=== PATIENT | male | born 1965 | race African-American/Black ===

== ENCOUNTER 2021-12-01 15:58 | Emergency (ER) | payer OTHER, SELFPAY ==
--- NOTE | ~2021-12-01 | CT_ITS ---
EXAMINATION: CT ABDOMEN AND PELVIS WITHOUT CONTRAST CLINICAL INFORMATION: Right flank pain and hip pain after fall x2 days. COMPARISON: None TECHNIQUE: Multidetector volumetric imaging was performed from the superior aspect of the liver through the pubic symphysis. Sagittal and coronal reformatted images were obtained on the technologist's workstation. This CT examination was performed using dose optimization techniques as appropriate, variously including the following: *Automated exposure control *Adjustment of mA and/or kV according to patient size (this includes techniques or standardized protocols for targeted exams where dose is matched to indication/reason for exam; i.e. extremities or head) *Use of iterative reconstruction technique DLP: 781 mGy-cm FINDINGS: LUNG BASES: The visualized lung bases are unremarkable. LIVER, GALLBLADDER, AND BILIARY TREE: The liver is normal in size, shape, and attenuation. No focal hepatic lesion or biliary ductal dilatation is present. The gallbladder is unremarkable with no evidence of radiopaque gallstones, gallbladder wall thickening, or obvious pericholecystic inflammatory changes. PANCREAS: Unremarkable. SPLEEN: Unremarkable. ADRENAL GLANDS: Unremarkable. KIDNEYS AND URETERS: The kidneys are normal in size, shape, and attenuation. No hydronephrosis, hydroureter, or calculi seen. No perinephric stranding. BLADDER: The bladder isn't distended with a diffuse bladder wall thickening. No radiopaque calculi seen. GASTROINTESTINAL TRACT: Scattered stool and gas is seen throughout the colon without any distention. The appendix is normal. The small bowel loops are normal. No free air or free fluid seen. ABDOMINAL WALL: No significant hernia is appreciated. LYMPH NODES: Normal. VASCULAR: Unremarkable. PELVIC VISCERA: Moderate stool is seen in the sigmoid colon. The prostate gland is moderately enlarged. OSSEOUS STRUCTURES: No lytic or sclerotic process seen. Moderate ventral spondylosis seen in lower dorsal spine. CT/CT abdomen pelvis wo con IMPRESSION: No acute intra-abdominal process seen. The appendix is normal caliber. There is moderate constipation. No radiopaque urolith or hydroureteronephrosis. Fleischner guidelines were followed.
[2021-12-01 17:04] VITALS: BP 130/86; PULSE 97; RESP 16; TEMP 36.6; O2SAT 96; BMI 32.8
--- NOTE | 2021-12-01 17:55 | ED_ITS ---
HPI - Fall General Chief Complaint: Fall Stated Complaint: fall at work Time Seen by Provider: 12/01/21 17:23 Source: patient Mode of arrival: ambulatory Limitations: no limitations History of Present Illness HPI Narrative: 56-year-old male presenting to the ED with complaints of right flank/lower back/right hip/leg pain after he had a mechanical fall at work 2 days ago. He reports that there was plastic on the floor and he did not see the plastic and his right leg slipped on the plastic and flew up into the air and he fell onto his left side and since then he has been having pain to his right side. He juvenal es head injury loss of consciousness or prolonged down sign or being on any blood thinners. He denies any symptoms prior to the fall. He denies any headaches, dizziness, neck pain/injury, head injury, upper back injury, any other extremity injury, any paresthesias, focal weakness or general weakness, dysuria, hematuria, urinary bowel incontinence or retention, radiation of the flank pain/back pain or any other symptoms complaints concerns or injuries at this time. MD complaint: fall Onset (ago): day(s) (2 days ago) Fall from: standing Fall witnessed: no Place fall occurred: work Loss of consciousness: none Prolonged down time: no Symptoms prior to fall: none Context: tripped/slipped Location of injury: back, abdomen and pelvis Severity: mild Quality: aching Associated symptoms (after fall): other (right flank/back/hip pain ) Related Data Allergies Allergy/AdvReac Type Severity Reaction Status Date / Time No Known Allergies Allergy Verified 12/01/21 17:07 Review of Systems Review of Systems: Constitutional : No Weight loss, No Fever, No Chills, No Night Sweats, No Fatigue, No Malaise ENT/Mouth : No Hearing loss, No Ear Pain, No Nasal Congestion, No Sinus Pain, No Hoarseness, No sore throat, No Rhinorrhea, No Swallowing Difficulty Eyes: No Eye Pain, No Swelling, No Redness, No Foreign Body, No Discharge, No Vision Changes Cardiovascular : No Chest Pain, No SOB, No Dyspnea on Exertion, No Orthopnea, No Edema, No Palpitations Respiratory : No Cough, No Sputum, No Wheezing, No Smoke Exposure, No Dyspnea Gastrointestinal : No Nausea, No Vomiting, No Diarrhea, No Constipation, No abdominal Pain, No Hematochezia, No Melena Genitourinary : + right flank pain, no irregular bleeding, No Dysuria, No Urinary Frequency, No Hematuria, No Urinary Incontinence, No Urgency, No Flank Pain, No Urinary Flow Changes, No Hesitancy Musculoskeletal : + right hip pain, + lower back pain, No additional joint pain, No Myalgias, No Joint Swelling Skin : No Skin Lesions, No rash Neuro : No Weakness, No Numbness, No Paresthesias, No Loss of Consciousness, No Dizziness, No Headache Psych : No Anxiety/Panic, No Depression, No SI/HI/AH/VH, No Social Issues, Heme/Lymph: No Bruising, No Bleeding,No Lymphadenopathy Endocrine : No Polyuria, No Polydipsia, No Temperature Intolerance Yes all other systems are reviewed and are negative [facility] Past Medical History Attestation statement: The following information was validated with the patient. Source: old records reviewed and nursing notes reviewed Social History Social History Advance Directives: No Advance Directives Information Provided: No Physical Exam Vital Signs: Vital Signs: Last Vital Signs Temp 97.8 F 12/01/21 17:04 Pulse 97 12/01/21 17:04 Resp 16 12/01/21 17:04 BP 130/86 12/01/21 17:04 Pulse Ox 96 12/01/21 17:04 O2 Del Method 12/01/21 17:04 BMI result Body Mass Index 32.8 vital signs have been reviewed as normal and appeared to be correct. Blood pressure normal. Heart rate normal. Respiration rate normal. Temperature normal. Oxygen saturation normal. Appearance: Alert. Oriented X3. No acute distress. Head: Normal external exam. Normocephalic. Atraumatic. No Palencia signs noted. No raccoon eyes noted Eyes: PERRLA. EOMI. Conjunctiva and sclera normal. Eyelids normal. ENT: EAC normal. TM's Normal. No septal hematoma noted. No hemotympanum noted. Pharynx normal. Uvula midline. Moist mucous membranes. No lesions/ulcerations or masses noted on the tongue. Normal voice. No trismus noted. No drooling noted. No muffled voice noted. Neck: Normal inspection. Neck supple. FROM. No adenopathy. Thyroid Normal. No tracheal deviation noted. No crepitus is noted. No meningeal signs. No neck mass noted. No signs of trauma noted. CVS: Normal heart rate and rhythm. Heart sound normal. Pulses normal throughout. No murmurs/rales/gallops. Respiratory: No respiratory distress. Painless inspiration. Breath sounds normal. No wheezes/rales/rhonchi noted. Chest nontender. No crepitus is noted. No signs of trauma noted. No accessory muscle usage noted or decreased air movement noted. No signs of trauma. Abdomen: Soft and nontender. Bowel sounds normal in all 4 quadrants. No distention noted. No organomegaly noted. No visible injury noted. Back: No CVA tenderness. Full range of motion noted. Patient with tenderness palpation to bilateral lumbar para spinous musculature. No mid lumbar tenderness step-offs or deformities noted. No signs of trauma. Patient neuro intact bilaterally and distally on all 4 extremities. Patient's reflexes intact bilaterally and distally on all 4 extremities. No rashes/lesion/induration/fluctuance or signs of infection noted. Skin: Skin warm and dry. Normal skin color. Normal skin turgor. No rashes/lesions/lacerations noted. Extremities: Patient mild tenderness palpation to the right hip although has full range of motion of the right hip no obvious ligamentous or tendon injury noted or obvious deformity noted. Otherwise all other extremities exhibit normal range of motion nontender. No lower extremity edema. No calf tenderness is noted. Neuro: Oriented X 3. No motor deficit. No sensory deficit. Reflexes normal. Normal steady gait. No focal neuro deficits noted. CN's II-XII intact bilaterally? Vascular: + radial pulses/+ 2 distal pedal pulses/+2 dorsalis pedis b/l. Normal cap refill. No cyanosis noted to upper extremity nails and lower extremity toes nails. Course Course Course Narrative: 17:30pm - 56-year-old male presenting to the ED with complaints of right flank/lower back/right hip/leg pain after he had a mechanical fall at work 2 days ago. He reports that there was plastic on the floor and he did not see the plastic and his right leg slipped on the plastic and flew up into the air and he fell onto his left side and since then he has been having pain to his right side. Will obtain a CT scan of abdomen pelvis without IV contrast to evaluate the patient's kidney/right hip and lumbar spine. Will also obtain a UA and re-evaluate. MDM - Fall Medical Records Attestation: I reviewed the patient's medical records. Discharge Plan Discharge Clinical Impression: Fall, Work related injury, Back strain Patient Disposition: Still a Patient
[2021-12-01 20:41] LABS: Appearance Urine CLEAR; Color Urine YELLOW; Glucose Urine UA NEG (NEG); Leukocyte Esterase Urine NEG (NEG); Nitrite Urine NEG (NEG); Specific Gravity - Urine 1.025 (1.005-1.025); Urine Blood NEG (NEG); Urine Ketones NEG (NEG); Urine Protein NEG (NEG-TRACE)
== END 2021-12-01 20:47 | disposition home or self-care (01) ==
PROVIDERS: Physician Assistant Medical; Emergency Provider Emergency Medicine
DX: S39.012A Strain of muscle, fascia and tendon of lower back, initial encounter (principal); W01.0XXA Fall on same level from slipping, tripping and stumbling without subsequent striking against object, initial encounter; Y93.89 Activity, other specified; Y92.59 Other trade areas as the place of occurrence of the external cause; Y99.0 Civilian activity done for income or pay
CPT/HCPCS: 74176; 81003; 99284

== ENCOUNTER 2022-01-19 16:11 | Emergency (ER) | payer SELFPAY ==
--- NOTE | ~2022-01-19 | XR_ITS ---
EXAMINATION: XR FOOT, LEFT CLINICAL INFORMATION: Left great toe pain COMPARISON: None TECHNIQUE: AP, lateral, and oblique views of the left foot. FINDINGS: No acute fracture or dislocation. Moderate first MTP joint osteoarthritis with joint space narrowing, subchondral sclerosis and osteophyte formation. Joint spaces otherwise maintained. Lisfranc alignment is maintained. No erosions are seen. Mild soft tissue swelling overlying the medial aspect of the first MTP joint. Posterior and plantar calcaneal spurs. No ankle joint effusion. XR/XR foot LT 2V IMPRESSION: 1. No acute osseous injury. 2. Moderate first MTP joint osteoarthritis.
[2022-01-19 17:38] VITALS: BP 116/75; PULSE 93; RESP 18; TEMP 36.4; O2SAT 97; BMI 32.8
[2022-01-19 21:51] VITALS: BP 142/93; PULSE 72; RESP 14; TEMP 36.7; O2SAT 97
--- NOTE | 2022-01-19 22:00 | ED.GENADULT ---
HPI - General Adult General Chief complaint: Extremity Problem Stated complaint: Toe pain Time Seen by Provider: 01/19/22 22:00 Source: patient Limitations: no limitations History of Present Illness HPI narrative: This is a 56-year-old male with a history of gout in his right big toe, who complains of similar symptoms in his left big toe for about 3 days. The patient has noted pain around the proximal joint (metatarsophalangeal joint), with tenderness and redness. He denies any fever. He drinks beer occasionally, denies regular alcohol use. He has history of hypertension Related Data Previous Rx's Medication Instructions Recorded colchicine 0.6 mg capsule 0.6 mg PO DAILY #1 cap 01/19/22 prednisone 10 mg tablet 40 mg PO DAILY #20 tabs 01/19/22 tramadol 50 mg tablet (Ultram) 50 - 100 mg PO Q6H PRN pain #20 01/19/22 tabs Allergies Allergy/AdvReac Type Severity Reaction Status Date / Time No Known Allergies Allergy Verified 12/01/21 17:07 Review of Systems Constitutional: Constitutional: Denies fever(s) Musculoskeletal: Musculoskeletal: Reports arthralgias PMFSH Social History Social History Advance Directives: No Advance Directives Information Provided: No Physical Exam ED Vital Signs: Vital Signs - 24 hr 01/19/22 17:38 01/19/22 21:51 Temperature 97.6 F 98.1 F Pulse Rate 93 72 Respiratory Rate 18 14 Blood Pressure 116/75 142/93 H Pulse Oximetry 97 97 Oxygen Delivery Method Room Air Room Air BMI result Body Mass Index 32.8 Const Other: Patient well-appearing Resp Effort & Inspection: normal respiratory effort Auscultation: clear to auscultation bilaterally Extrem Other: Left big toe with mild swelling, erythema, warmth, tenderness around the MTP joint consistent with gout. No severe erythema or cellulitic changes. Foot is neurovascularly intact Course Course Course Narrative: Patient was treated with colchicine 1.2 mg p.o., prednisone 40 mg p.o., tramadol 100 mg p.o.. Patient will be prescribed colchicine 0.6 mg p.o. x1 to take tomorrow, prednisone 40 mg for 5 days, and tramadol. X-ray showed some degenerative changes but no other acute pathology Medical Decision Making Imaging Data Foot/toe x-ray: Radiologist's impression: IMPRESSION: ? 1. No acute osseous injury. 2. Moderate first MTP joint osteoarthritis. Discharge Plan Discharge Clinical Impression: Acute gout involving toe Patient Disposition: Home, Self-Care Instructions: Low Purine Diet (ED), Gout (ED) Additional Instructions: Follow-up with her primary care physician. Take the medications as prescribed. Prescriptions: New colchicine 0.6 mg capsule 0.6 mg PO DAILY Qty: 1 0RF prednisone 10 mg tablet 40 mg PO DAILY Qty: 20 0RF tramadol [Ultram] 50 mg tablet 50 - 100 mg PO Q6H PRN (Reason: pain) Qty: 20 0RF
[2022-01-19] MEDS: predniSONE 20 MG TABLET 40 MG PO (22:43)
[2022-01-19] MEDS: traMADoL HCL 50 MG TABLET 100 MG PO (22:44)
[2022-01-19] MEDS: Colchicine 0.6 MG TABLET 1.2 MG PO (22:59)
== END 2022-01-19 23:08 | disposition home or self-care (01) ==
PROVIDERS: Emergency Provider Emergency Medicine
DX: M10.072 Idiopathic gout, left ankle and foot (principal); Z79.899 Other long term (current) drug therapy
CPT/HCPCS: 73620; 99283

== ENCOUNTER 2022-03-10 01:52 | Emergency (ER) | payer OTHER, SELFPAY ==
--- NOTE | ~2022-03-10 | CT_ITS ---
EXAMINATION: CT HEAD WITHOUT CONTRAST CT CERVICAL SPINE WITHOUT CONTRAST CLINICAL INFORMATION: Status post fall, pain. COMPARISON: None. TECHNIQUE: Contiguous axial imaging was performed from the skull base to vertex without intravenous administration of contrast. Contiguous axial imaging was performed from the upper chest through the skull base without intravenous administration of contrast. Coronal and sagittal reformats were obtained at the acquisition workstation. This CT examination was performed using dose optimization techniques as appropriate, variously including the following: *Automated exposure control *Adjustment of mA and/or kV according to patient size (this includes techniques or standardized protocols for targeted exams where dose is matched to indication/reason for exam; i.e. extremities or head) *Use of iterative reconstruction technique DLP: 755 mGy-cm FINDINGS: Head: There is no evidence of acute intracranial hemorrhage or edematous territorial infarction. There is no abnormal attenuation within the brain parenchyma. Shell-white matter differentiation is preserved. The ventricles are normal in size and configuration. No evidence for obstructive hydrocephalus. No abnormal mass effect or midline shift. No extra-axial fluid collections. No acute soft tissue or osseous abnormalities. The mastoid air cells and paranasal sinuses are clear. Cervical Spine: The atlantooccipital and atlantoaxial articulations remain well aligned. Straightening of the normal cervical lordosis. Otherwise, there is anatomic alignment of the vertebral bodies and posterior elements. No evidence of acute fracture or subluxation. There is moderate multilevel cervical spondylosis with prominent anterior osteophytes at C2-C3 and C5-C6. 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 There is no prevertebral soft tissue swelling. The thyroid gland and remaining cervical soft tissues are normal in appearance. The lung apices demonstrate no abnormalities. CT/CT cervical spine wo IV con IMPRESSION: No acute intracranial pathology. No acute cervical spine fracture or malalignment.
[2022-03-10 02:37] VITALS: BP 149/96; PULSE 104; RESP 16; TEMP 36.8; O2SAT 97; BMI 32.8
--- NOTE | 2022-03-10 05:03 | ED_ITS ---
HPI - Head Injury General Chief complaint: Head Injury Stated complaint: Fall Time Seen by Provider: 03/10/22 05:03 Source: patient Mode of arrival: ambulatory Limitations: no limitations History of Present Illness HPI Narrative: Patient had a mechanical fall at 17:00 due to pain in his left foot lost balance fell forward complaint pain in the head questionable loss of consciousness very poor historian old abrasion on the head no seizures Related Data Previous Rx's Medication Instructions Recorded colchicine 0.6 mg capsule 0.6 mg PO DAILY #1 cap 01/19/22 prednisone 10 mg tablet 40 mg PO DAILY #20 tabs 01/19/22 tramadol 50 mg tablet (Ultram) 50 - 100 mg PO Q6H PRN pain #20 01/19/22 tabs Allergies Allergy/AdvReac Type Severity Reaction Status Date / Time No Known Allergies Allergy Verified 12/01/21 17:07 Review of Systems Review of Systems: Yes all other systems are reviewed and are negative [facility] Social History Social History Advance Directives: No Advance Directives Information Provided: Yes Physical Exam Vital Signs: Vital Signs: Last Vital Signs Temp 97.5 F 03/10/22 06:00 Pulse 78 03/10/22 06:00 Resp 16 03/10/22 06:00 BP 130/90 H 03/10/22 06:00 Pulse Ox 96 03/10/22 06:00 O2 Del Method 03/10/22 06:00 BMI result Body Mass Index 32.8 Appearance: Alert. Oriented X3. No acute distress. Eyes: PERRLA, No Nystagmus HEENT: Pharynx normal. Oral Mucosa moist Neck: Normal inspection. Neck supple. No midline tenderness diffuse paraspinal tenderness CVS: Normal heart rate and rhythm. Pulses normal. Respiratory: No respiratory distress. Equal air entry bilateral, no wheezing/rales/rhonchi Abdomen: Soft and nontender. Bowel sounds are present, no mass palpable, no CVA tenderness Skin: Skin warm and dry. Normal skin color. Normal skin turgor. Extremities: No lower extremity edema. No calf tenderness Neuro: Oriented X 3. No motor deficit. No sensory deficit.No cerebellar signs , cranial nerves II-XII intact MDM - Head Injury MDM Narrative Medical decision making narrative: Patient status post mechanical fall CT C-spine and head negative for any acute discharge patient home advised to follow-up with PCP and more cautious while ambulating Differential Diagnosis Differential diagnosis: Likely closed head injury Discharge Plan Discharge Clinical Impression: Closed head injury Patient Disposition: Home, Self-Care Additional Instructions: Care and cautions as advised Prescriptions: No Action colchicine 0.6 mg capsule 0.6 mg PO DAILY Qty: 1 0RF prednisone 10 mg tablet 40 mg PO DAILY Qty: 20 0RF tramadol [Ultram] 50 mg tablet 50 - 100 mg PO Q6H PRN (Reason: pain) Qty: 20 0RF
[2022-03-10 06:00] VITALS: BP 130/90; PULSE 78; RESP 16; TEMP 36.4; O2SAT 96
== END 2022-03-10 08:01 | disposition home or self-care (01) ==
PROVIDERS: Emergency Provider Internal Medicine
DX: R51.9 Headache, unspecified (principal); M54.2 Cervicalgia
CPT/HCPCS: 70450; 72125; 99283; 99284

== ENCOUNTER 2022-11-26 07:48 | Emergency (ER) | payer OTHER, MEDICAID, SELFPAY ==
[2022-11-26 07:51] VITALS: BP 142/101; PULSE 78; RESP 16; TEMP 36.3; O2SAT 95; BMI 37.8
--- NOTE | 2022-11-26 08:04 | ED_ITS ---
HPI - General Adult General Chief complaint: Eye Problems Stated complaint: Watery eyes Time Seen by Provider: 11/26/22 08:03 Source: patient Mode of arrival: ambulatory Limitations: no limitations History of Present Illness HPI narrative: Patient is a 57 year old assigned male at with a history of HTN presenting to the emergency department today with bilateral eye irritation. Patient states that over the last 2 weeks his eyes have been more watery and irritated. Patient denies any dizziness, lightheadedness, abdominal pain, nausea, vomiting, fever, chills, blurry vision, double vision, loss of vision, chest pain, difficulty breathing, shortness of breath, back pain, night sweats, pain with urination, increased urinary frequency, increased urinary urgency, blood in his urine or stool, syncope or a near syncopal episode, recent trauma or falls, bowel incontinence, bladder incontinence, bowel retention, bladder retention, or any other complaints at this time. Onset (ago): week(s) (2) Location: eyes Radiation: non-radiation Severity: mild Severity scale (1-10): 3 Relieving factors: none Exacerbating factors: none Associated symptoms: denies other symptoms Treatments prior to arrival: none Related Data Previous Rx's Medication Instructions Recorded colchicine 0.6 mg capsule 0.6 mg PO DAILY #1 cap 01/19/22 prednisone 10 mg tablet 40 mg PO DAILY #20 tabs 01/19/22 tramadol 50 mg tablet (Ultram) 50 - 100 mg PO Q6H PRN pain #20 01/19/22 tabs erythromycin 5 mg/gram (0.5 %) eye 0.5 inch ophthalmic (eye) Q4H #3.5 11/26/22 ointment grams loratadine 10 mg tablet (Allergy 10 mg PO DAILY #30 tabs 11/26/22 Relief (loratadine)) Allergies Allergy/AdvReac Type Severity Reaction Status Date / Time No Known Allergies Allergy Verified 11/26/22 07:54 Review of Systems Constitutional: Constitutional: Reports no additional constitutional complaints, Denies chills, Denies fever(s) and Denies night sweats Eyes: Eyes: Reports no additional eye complaints, Denies blurry vision, Denies change in vision, Denies diplopia, Denies eye discharge, Reports irritation, Denies loss of vision and Denies eye pain Comments: bilateral watery eyes ENT: Denies dizziness Cardiovascular: Cardiovascular: Reports no additional cardiovascular complaints, Denies chest pain, Denies lightheadedness, Denies Loss of Consciousness and Denies dyspnea Respiratory: Respiratory: Reports no additional respiratory complaints and Denies dyspnea Gastrointestinal: Gastrointestinal: Reports no additional gastrointestinal complaints, Denies abdominal pain, Denies melena, Denies hematochezia, Denies change in bowel habits and Denies change in stool character Genitourinary: Genitourinary: Reports no additional male genitourinary complaints, Denies hematuria, Denies oliguria, Denies difficulty urinating, Denies dysuria, Denies urinary frequency, Denies urinary hesitancy, Denies urinary incontinence and Denies urinary urgency Musculoskeletal: Musculoskeletal: Reports no additional musculoskeletal complaints, Denies numbness and Denies tingling Neurologic: Denies dizziness, Denies loss of vision, Denies numbness and Denies tingling Psychiatric: Psychiatric: Reports no additional psychiatric complaints Endocrine: Endocrine: Reports no additional endocrine complaints Hematologic/Lymphatic: Hematologic/Lymphatic: Reports no additional hematologic/lymphatic complaints Allergic/Immunologic: Allergic/Immunologic: Reports no additional allergic/immunologic complaints PMFSH Past Medical History Attestation statement: The following information was validated with the patient. Source: old records reviewed and nursing notes reviewed Physical Exam ED Vital Signs: Vital Signs - 24 hr 11/26/ 07:51 Temperature 97.4 F Pulse Rate 78 Respiratory Rate 16 Blood Pressure 142/101 H Pulse Oximetry 95 Oxygen Delivery Method Room Air BMI result Body Mass Index 37.8 Const General: cooperative, no acute distress, alert and awake Nutritional Appearance: well nourished Orientation/consciousness: patient oriented x3 Limitations: no limitations [facility] Head: Yes normal to inspection and Yes atraumatic Ears: hearing grossly normal bilaterally and external ears normal General nose exam: Normal external nose present, no nasal discharge noted and no epistaxis Face and sinus: Yes normal facial exam, No abrasion and No laceration Mouth: Normal oral and palatal mucosa present, no drooling and no muffled voice Eyes Other: bilateral eyes tearing and irritated Periorbital: periorbital findings normal Eyelids: Yes eyelids normal Pupils: Equal, round and reactive pupils present EOM: EOMs intact bilaterally Neck Neck: Yes normal visual inspection, Yes full ROM and Yes no lymphadenopathy Chest Chest palpation & inspection: normal inspection of the chest Resp Effort & Inspection: normal respiratory effort and able to speak in complete sentences Auscultation: clear to auscultation bilaterally Cardio Rate: regular rate Rhythm: regular rhythm GI Inspection: Yes normal to inspection Neuro General: patient oriented x3 and moves all extremities Cranial nerves: Yes Equal, round and reactive pupils present Cognition (Neuro): normal cognition Motor exam (neuro): 5/5 motor strength present throughout Sensory Exam: Normal double simultaneous stimulation for sensation Coordination: [id number] test normal Extrem General: Yes normal to inspection, Yes full ROM and Yes capillary refill normal Psych Appearance: grossly normal Mental Status: mental status grossly normal Affect: normal affect Attitude: cooperative Thought process: Normal thought process present Thought content: Normal thought content present Insight: Good insight present (Psych) Medical Decision Making Medical Decision Making MDM Narrative: Patient is a 57 year old assigned male at with a history of HTN presenting to the emergency department today with bilateral eye watering and irritation. Patient's physical exam showed watery and irritated eyes. I explained my physical exam findings to the patient. I answered all questions asked by the patient. I stressed the importance of the patient taking his medication as prescribed. I stressed the importance of the patient following up with his primary care provider as well as an payroll tax specialist. I stressed the importance of the patient returning to the emergency department immediately if his symptoms were to worsen or if he were to develop any dizziness, shortness of breath, difficulty breathing, chest pain, blurry vision, loss of vision, nausea, vomiting, abdominal pain, fever, chills, back pain, or any other complaints. Patient verbalized agreement and understanding with this treatment plan and discharge. Differential Diagnosis Differential Diagnoses: The differential diagnosis associated with the presentation includes Iritis Uveitis Conjunctivitis Allergic conjunctivitis Eye irritation Excessive watery eyes Prescription Management I considered prescription management with: Antibiotic (patient prescribed an antibiotic to cover for corneal abrasion) Chronic Conditions Patient?s care impacted by: Hypertension Discharge Plan Discharge Clinical Impression: Eye irritation Patient Disposition: Home, Self-Care Instructions: Eye Pain (ED) Additional Instructions: Follow up with your primary care provider and an payroll tax specialist. Return to the emergency department immediately if your symptoms worsen or if you develop any dizziness, shortness of breath, difficulty breathing, chest pain, blurry vision, loss of vision, nausea, vomiting, abdominal pain, fever, chills, back pain, or any other complaints. Prescriptions: New erythromycin 5 mg/gram (0.5 %) ointment 0.5 inch ophthalmic (eye) Q4H Qty: 3.5 0RF loratadine [Allergy Relief (loratadine)] 10 mg tablet 10 mg PO DAILY Qty: 30 0RF No Action colchicine 0.6 mg capsule 0.6 mg PO DAILY Qty: 1 0RF prednisone 10 mg tablet 40 mg PO DAILY Qty: 20 0RF tramadol [Ultram] 50 mg tablet 50 - 100 mg PO Q6H PRN (Reason: pain) Qty: 20 0RF Referrals: [facility] [place] Family [facility] [Provider Group] (Call to establish and follow up with a primary care provider. If you already have a primary care provider, please follow up with them.) [facility] [place] Primary Care, [place] [Provider Group] (Call to establish and follow up with a primary care provider. If you already have a primary care provider, please follow up with them.) [facility] [place] Primary Care,[facility] [Provider Group] (Call to establish and follow up with a primary care provider. If you already have a primary care provider, please follow up with them.) Lisandro Woodard [Physician] - (Call to establish and follow up with an payroll tax specialist. ) Stand Alone Forms: Work/School Release Print Language: Wolof
[2022-11-26 08:15] VITALS: BP 138/98; PULSE 83; RESP 16; TEMP 37; O2SAT 96
== END 2022-11-26 08:30 | disposition home or self-care (01) ==
LOC: HO.ED 08:18
PROVIDERS: Emergency Provider Student in an Organized Health Care Education/Training Program
DX: H57.13 Ocular pain, bilateral (principal); Z79.899 Other long term (current) drug therapy
CPT/HCPCS: 99283; 99284

== ENCOUNTER 2024-02-22 14:02 | Outpatient (REF) | payer OTHER, MEDICAID, SELFPAY ==
[2024-02-22 17:21] LABS: MANUAL DIFF FLAG NO
[2024-02-22 17:31] LABS: Basophils Percent Auto 0.8 % (0-2); Eosinophils Absolute Auto 0.1 X10*3/uL (0.0-0.4); Eosinophils Percent Auto 2.1 % (0-4); Hematocrit 39.3 % (42.0-52.0); Hemoglobin 13.7 g/dl (14.0-18.0); Imm Gran Abs Auto 0.01 X10*3/uL (0.00-0.03); Imm Gran Pct Auto 0.2 % (0.0-0.4); Lymphocytes Absolute Auto 2.7 X10*3/uL (1.2-4.9); Mean Corpuscular HGB Conc 34.9 g/dl (31.0-36.0); Mean Corpuscular Hemoglobin 28.5 pg (27.0-33.0); Mean Corpuscular Volume 81.9 fL (80.0-98.0); Mean Platelet Volume 11.9 fL (9.4-12.4); Monocytes Absolute Auto 0.3 X10*3/uL (0.1-1.2); Monocytes Percent Auto 5.7 % (2-11); Neutrophils Absolute Auto 1.7 x10*3/uL (2.0-8.3); Neutrophils Percent Auto 35.2 % (45-73); Platelet Count 214 X10*3/uL (160-400); Red Cell Distribution Width 12.5 % (11.0-16.0); White Blood Count 4.8 X10*3/uL (4.8-10.8)
[2024-02-22 17:41] LABS: Estimated Average Glucose 212 mg/dL; Hemoglobin A1C 268.6433 umol/L; Total Hemoglobin (HGBA1C) 3569.6283 umol/L
[2024-02-22 17:48] LABS: Creatinine Urine 179.34 mg/dL; Microalbum/Creatinine Ratio Ur 12.2 ug/mg cr (<30)
[2024-02-22 17:49] LABS: Alanine Aminotransferase 41 U/L (0-40); Albumin Level 4.4 g/dL (3.5-5.0); Alkaline Phosphatase 112 U/L (39-117); Anion Gap 12 (12-20); Aspartate Amino Transferase 36 U/L (5-37); Bilirubin Total 0.5 mg/dL (0.0-1.0); Blood Urea Nitrogen 5 mg/dL (9-16); Calcium 9.5 mg/dL (8.4-10.2); Carbon Dioxide 27 mmol/L (22-29); Chloride 103 mmol/L (96-108); Cholesterol 128 mg/dL (<200); Estimated Glomerular Filt Rate > 60; Glucose Random 172 mg/dL (60-115); HDL Cholesterol 29 mg/dL (>40); LDL Cholesterol Calculated 57 mg/dL (<100); Potassium 3.2 mmol/L (3.3-5.1); Sodium 139 mmol/L (135-145); Total Protein 7.3 g/dL (6.5-8.0); Triglycerides 210 mg/dL (<150)
[2024-02-23 08:22] LABS: HBS Num1 12.62 mIU/mL (0-7.99); HBc Num1 0.52 S/CO (0.00-0.79); HBsAGNum1 0.37 S/CO (0.00-0.99); HIV AB/AG Nonreactive (Nonreactive); HIV Num 1 0.05 S/CO (0.00-0.99); Hepatitis B Core Antibody Nonreactive (Nonreactive); Hepatitis B Surface Antigen Negative (Negative); ~Hepatitis B Surface Antibody REACTIVE (Nonreactive)
[2024-02-23 11:05] LABS: CT PCR NOT DETECTED (Not Detect.); NG PCR NOT DETECTED (Not Detect.)
[2024-02-23 13:13] LABS: HCV Log PCR <1.18 NOT DETECTED Log IU/mL (NOT DETECTED); HepC Viral Load <15 NOT DETECTED IU/mL (NOT DETECTED)
[2024-02-25 14:28] LABS: RPR Rapid Plasma Reagin NON-REACTIVE (NON-REACTIVE)
== END 2024-02-22 14:03 | disposition home or self-care (01) ==
LOC: HO.CHCLDS 14:02
PROVIDERS: Visit Provider Registered Nurse
DX: Z00.00 Encounter for general adult medical examination without abnormal findings (principal); Z12.5 Encounter for screening for malignant neoplasm of prostate; Z13.1 Encounter for screening for diabetes mellitus
CPT/HCPCS: 36415; 80053; 80061; 82043; 82570; 83036; 84153; 84443; 85025; 86592; 86704; 86706; 87340; 87389; 87491; 87522; 87591

== ENCOUNTER 2024-07-25 16:09 | Outpatient (REF) | payer MEDICAID, SELFPAY ==
[2024-07-25 18:06] LABS: Appearance Urine Clear; Color Urine Yellow; Glucose Urine UA >=1000 mg/dL (Negative); Leukocyte Esterase Urine Negative (Negative); Nitrite Urine Negative (Negative); PH 5.5 (5.0-9.0); Specific Gravity - Urine >= 1.030 (1.005-1.025); UMIC TRIGGER UACC YES; Urine Blood Negative (Negative); Urine Ketones Trace mg/dL (Negative); Urine Protein Negative (Neg-Trace)
[2024-07-25 18:13] LABS: Bacteria Urine None Seen (None Seen); Hyaline Casts Urine 0-2 /LPF (0-2); RBC Urine 0-2 /HPF (0-2); Squamous Epithelial Cell Urine 0-2 /HPF (0-2); WBC Urine 0-5 /HPF (0-5)
== END 2024-07-25 16:10 | disposition home or self-care (01) ==
LOC: HO.CHCLNP 16:09
PROVIDERS: Visit Provider Registered Nurse
DX: E11.9 Type 2 diabetes mellitus without complications (principal)
CPT/HCPCS: 81001